=== PATIENT | female | born 1950 | race Caucasian/White ===

== ENCOUNTER → 2016-11-03 | Outpatient (CLI) | payer OTHER ==
[~2016-11-03] MED LIST: ASPI325T4 PO; DILT120T PO; LIDOCAINE 1%, 20ML ONE; PHEN100C PO; PHEN100T2 PO; SODIUM BICARBONATE 4.2%, 5ML ONE; SULF1TAB3 PO
== END | disposition home or self-care (01) ==
LOC: RAD 12:51
PROVIDERS: ATTEND Surgery
DX: Z01.818 Encounter for other preprocedural examination (principal); E04.1 Nontoxic single thyroid nodule
CPT/HCPCS: 76942; 88172; 88173; J3490

== ENCOUNTER 2016-12-13 22:22 | Inpatient (IN) | payer OTHER ==
[~2016-12-13] VITALS: Ht 160 cm; Wt 87.3 kg
[~2016-12-13 22:22] MED LIST changes: -LIDOCAINE 1%, 20ML ONE; -SODIUM BICARBONATE 4.2%, 5ML ONE
[2016-12-13] MEDS ORDERED: OMNIPAQUE 350 MG/ML, 100ML BOTTLE ONE (23:02)
[2016-12-14] MEDS ORDERED: ASPIRIN 81 MG TABLET CHEW PO ONE
[2016-12-14] MEDS ORDERED: ASPIRIN 81 MG TABLET CHEW ONE (00:09)
[2016-12-14] MEDS ORDERED: METO25TA35 PO (00:50)
[2016-12-14] MEDS ORDERED: ASPI81TA50 PO (00:50)
[2016-12-14] MEDS ORDERED: LABETALOL 5MG/ML, 20ML IV PRN (01:30)
[2016-12-14 01:48] VITALS: BP 136/89
[2016-12-14 02:29] VITALS: BP 136/89
[2016-12-14] MEDS: SODIUM CHLORIDE 0.9% 1,000 ML IV SCH ×3 (02:31→23:44)
[2016-12-14] MEDS: HEPARIN 5,000 UNITS/ML, 1ML SQ SCH ×3 (02:31→19:52)
[2016-12-14] MEDS: METOPROLOL SUCCINATE 25 MG TAB.ER.24H PO SCH (05:41)
[2016-12-14 06:47] LABS: C-REACTIVE PROTEIN, QUANT 0.54 mg/dL (0.02-0.49)
[2016-12-14 07:52] VITALS: BP 127/76
[2016-12-14] MEDS ORDERED: PHENYTOIN 100 MG CAPSULE PO SCH (09:00)
[2016-12-14] MEDS: ASPIRIN 325 MG TABLET PO SCH ×2 (09:00→16:15)
[2016-12-14] MEDS ORDERED: PHENOBARBITAL 100 MG TABLET PO SCH ×2 (09:00→12:30)
[2016-12-14] MEDS ORDERED: PHENYTOIN SODIUM 300 MG in SODIUM CHLORIDE 0.9% 100 ML IV SCH (12:00)
[2016-12-14] MEDS ORDERED: LORazepam 2 MG/ML, 1ML IVPush PRN (12:00)
[2016-12-14] MEDS ORDERED: FILTER 0.22 MICRON IV ONE (12:30)
[2016-12-14] MEDS ORDERED: FILTER 0.22 MICRON IV PRN (12:30)
[2016-12-14 14:13] VITALS: BP 124/81
[2016-12-14] MEDS: PHENYTOIN 100 MG CAPSULE PO SCH (19:53)
[2016-12-14] MEDS ORDERED: ATORVASTATIN 40 MG TABLET PO SCH (21:00)
[2016-12-14 21:01] VITALS: BP 134/87
[2016-12-15 02:28] VITALS: BP 130/88
[2016-12-15] MEDS ORDERED: METOPROLOL TARTRATE 25 MG TABLET PO ONE (04:30)
[2016-12-15] MEDS: HEPARIN 5,000 UNITS/ML, 1ML SQ SCH ×3 (04:50→22:01)
[2016-12-15] MEDS: METOPROLOL SUCCINATE 25 MG TAB.ER.24H PO SCH (05:27)
[2016-12-15 05:52] LABS: ASPARTATE AMINO TRANSFERASE 15 U/L (15-37); BLOOD UREA NITROGEN 10 mg/dL (7-18)
[2016-12-15] MEDS: SODIUM CHLORIDE 0.9% 1,000 ML IV SCH (07:00)
[2016-12-15 07:53] VITALS: BP 135/84
[2016-12-15] MEDS: PHENOBARBITAL 100 MG TABLET PO SCH (08:12)
[2016-12-15] MEDS: ASPIRIN 325 MG TABLET PO SCH (08:12)
[2016-12-15] MEDS ORDERED: PHENOBARBITAL 100 MG TABLET PO SCH (09:00)
[2016-12-15] MEDS ORDERED: DILTIAZEM 5 MG/ML, 5ML ONE (09:08)
[2016-12-15] MEDS ORDERED: DILTIAZEM 5 MG/ML, 5ML IVPush ONE (09:30)
[2016-12-15 10:06] VITALS: BP 120/89
[2016-12-15] MEDS ORDERED: METOPROLOL SUCCINATE 25 MG TAB.ER.24H PO ONE (10:30)
[2016-12-15] MEDS ORDERED: METOPROLOL SUCCINATE 25 MG TAB.ER.24H PO SCH (10:30)
[2016-12-15 13:01] VITALS: BP 113/72
[2016-12-15] MEDS: DIGOXIN 0.125 MG TABLET PO SCH (14:04)
[2016-12-15 19:42] VITALS: BP 114/74
[2016-12-15] MEDS ORDERED: METOPROLOL SUCCINATE 50 MG TAB.ER.24H PO SCH (21:00)
[2016-12-15] MEDS: PHENYTOIN 100 MG CAPSULE PO SCH (22:01)
[2016-12-15] MEDS: ATORVASTATIN 80 MG TABLET PO SCH (22:01)
[2016-12-16 00:09] VITALS: BP 113/70
[2016-12-16] MEDS: HEPARIN 5,000 UNITS/ML, 1ML SQ SCH ×3 (05:31→23:52)
[2016-12-16 08:11] VITALS: BP 148/85
[2016-12-16] MEDS ORDERED: METOPROLOL SUCCINATE 50 MG TAB.ER.24H PO SCH (09:00)
[2016-12-16] MEDS: DIGOXIN 0.125 MG TABLET PO SCH (09:34)
[2016-12-16] MEDS: PHENOBARBITAL 100 MG TABLET PO SCH (09:34)
[2016-12-16] MEDS: ASPIRIN 325 MG TABLET PO SCH (09:34)
[2016-12-16] MEDS ORDERED: SOTALOL 80MG TABLET PO SCH ×2 (11:00→18:00)
[2016-12-16] MEDS: SOTALOL 80MG TABLET PO SCH ×2 (11:45→18:36)
[2016-12-16] MEDS: ACETAMINOPHEN 325 MG TABLET PO PRN (14:57)
[2016-12-16 15:58] VITALS: BP 122/83
[2016-12-16 20:02] VITALS: BP 115/79
[2016-12-16] MEDS: ATORVASTATIN 80 MG TABLET PO SCH (20:19)
[2016-12-16] MEDS: PHENYTOIN 100 MG CAPSULE PO SCH (20:19)
[2016-12-16] MEDS: DABIGATRAN 150 MG CAPSULE PO SCH (20:20)
[2016-12-17 03:20] VITALS: BP 149/83
[2016-12-17] MEDS: SOTALOL 80MG TABLET PO SCH ×2 (05:59→18:02)
[2016-12-17 08:38] VITALS: BP 121/79
[2016-12-17] MEDS: HEPARIN 5,000 UNITS/ML, 1ML SQ SCH ×2 (09:00→16:53)
[2016-12-17] MEDS: DABIGATRAN 150 MG CAPSULE PO SCH ×2 (09:01→21:19)
[2016-12-17] MEDS: PHENOBARBITAL 100 MG TABLET PO SCH (09:02)
[2016-12-17] MEDS: ACETAMINOPHEN 325 MG TABLET PO PRN ×2 (10:36→22:09)
[2016-12-17 15:15] VITALS: BP 105/63
[2016-12-17] MEDS: ATORVASTATIN 80 MG TABLET PO SCH (21:19)
[2016-12-17] MEDS: PHENYTOIN 100 MG CAPSULE PO SCH (21:19)
[2016-12-17 21:36] VITALS: BP 122/83
[2016-12-18 01:13] VITALS: BP 116/75
[2016-12-18 05:22] LABS: BLOOD UREA NITROGEN 13 mg/dL (7-18)
[2016-12-18] MEDS: SOTALOL 80MG TABLET PO SCH ×2 (06:20→18:06)
[2016-12-18 07:37] VITALS: BP 120/73
[2016-12-18] MEDS: DABIGATRAN 150 MG CAPSULE PO SCH ×2 (09:25→22:19)
[2016-12-18] MEDS: PHENOBARBITAL 100 MG TABLET PO SCH (09:27)
[2016-12-18] MEDS: ACETAMINOPHEN 325 MG TABLET PO PRN (09:38)
[2016-12-18 14:18] VITALS: BP 122/76
[2016-12-18 21:21] VITALS: BP 131/88
[2016-12-18] MEDS: ATORVASTATIN 80 MG TABLET PO SCH (22:18)
[2016-12-18] MEDS: PHENYTOIN 100 MG CAPSULE PO SCH (22:19)
[2016-12-19 01:47] VITALS: BP 108/69
[2016-12-19 06:16] VITALS: BP 104/57
[2016-12-19] MEDS: SOTALOL 80MG TABLET PO SCH ×2 (06:24→18:18)
[2016-12-19 07:50] VITALS: BP 100/63
[2016-12-19] MEDS ORDERED: ATOR80TA75 PO (09:44)
[2016-12-19] MEDS ORDERED: POLY17PO5 PO (09:44)
[2016-12-19] MEDS ORDERED: SOTA80TA18 PO (09:44)
[2016-12-19] MEDS ORDERED: OXYC-302 PO (09:44)
[2016-12-19] MEDS ORDERED: DABI150C PO (09:44)
[2016-12-19] MEDS: DABIGATRAN 150 MG CAPSULE PO SCH ×2 (10:28→21:19)
[2016-12-19] MEDS: PHENOBARBITAL 100 MG TABLET PO SCH (10:28)
[2016-12-19] MEDS ORDERED: PNEUMOCOCCAL 23 VACCINE IM-VACC ONE (11:30)
[2016-12-19 13:53] VITALS: BP 112/70
[2016-12-19 18:34] VITALS: BP 123/68
[2016-12-19] MEDS: ATORVASTATIN 80 MG TABLET PO SCH (21:19)
[2016-12-19] MEDS: PHENYTOIN 100 MG CAPSULE PO SCH (21:20)
[2016-12-20 02:06] VITALS: BP 164/62
[2016-12-20] MEDS: SOTALOL 80MG TABLET PO SCH ×2 (05:35→18:05)
[2016-12-20 07:18] VITALS: BP 119/77
[2016-12-20] MEDS: PHENOBARBITAL 100 MG TABLET PO SCH (11:10)
[2016-12-20] MEDS: DABIGATRAN 150 MG CAPSULE PO SCH ×2 (11:10→20:47)
[2016-12-20 13:13] VITALS: BP 142/82
[2016-12-20 19:18] VITALS: BP 129/81
[2016-12-20] MEDS: ATORVASTATIN 80 MG TABLET PO SCH (20:47)
[2016-12-20] MEDS: PHENYTOIN 100 MG CAPSULE PO SCH (20:47)
[2016-12-21] VITALS (7 sets, daily range): BP systolic 113–147; BP diastolic 70–105
[2016-12-21] MEDS: SOTALOL 80MG TABLET PO SCH ×2 (06:21→17:55)
[2016-12-21] MEDS: DABIGATRAN 150 MG CAPSULE PO SCH ×2 (10:01→22:05)
[2016-12-21] MEDS: PHENOBARBITAL 100 MG TABLET PO SCH (10:01)
[2016-12-21] MEDS ORDERED: DILTIAZEM 5 MG/ML, 5ML IVPush ONE (21:30)
[2016-12-21] MEDS: PHENYTOIN 100 MG CAPSULE PO SCH (22:04)
[2016-12-21] MEDS: ATORVASTATIN 80 MG TABLET PO SCH (22:04)
[2016-12-22 01:17] VITALS: BP 113/80
[2016-12-22] MEDS: SOTALOL 80MG TABLET PO SCH (06:20)
[2016-12-22 06:40] VITALS: BP 123/87
[2016-12-22] MEDS: DABIGATRAN 150 MG CAPSULE PO SCH (09:43)
[2016-12-22] MEDS: PHENOBARBITAL 100 MG TABLET PO SCH (09:44)
[2016-12-22 12:30] VITALS: BP 104/71
== END 2016-12-22 16:25 | DRG 308 ==
LOC: ED 23:40 → EDIP 12-14 00:44 → 4WST 12-14 01:39
PROVIDERS: ADMIT Internal Medicine; ATTEND Internal Medicine
DX: I48.0 Paroxysmal atrial fibrillation (principal); I63.411 Cerebral infarction due to embolism of right middle cerebral artery; D68.69 Other thrombophilia; G47.33 Obstructive sleep apnea (adult) (pediatric); E66.9 Obesity, unspecified; E78.5 Hyperlipidemia, unspecified; G40.909 Epilepsy, unspecified, not intractable, without status epilepticus; I10 Essential (primary) hypertension; I49.5 Sick sinus syndrome; I65.22 Occlusion and stenosis of left carotid artery; I65.01 Occlusion and stenosis of right vertebral artery; Z66 Do not resuscitate; Z79.899 Other long term (current) drug therapy; Z87.891 Personal history of nicotine dependence; Z53.29 Procedure and treatment not carried out because of patient's decision for other reasons; Z88.8 Allergy status to other drugs, medicaments and biological substances; Z91.040 Latex allergy status; Z68.34 Body mass index [BMI] 34.0-34.9, adult
CPT/HCPCS: 36415; 70450; 70496; 70498; 70551; 71010; 80047; 80048; 80053; 80061; 80162; 81003; 82607; 82746; 82962; 83036; 83735; 84443; 85014; 85018; 85025; 85610; 85651; 85730; 86140; 90732; 93005; 93306; J1644; Q9967; 92523-GN; J7030

== ENCOUNTER 2017-01-22 11:11 | Inpatient (IN) | payer OTHER ==
[~2017-01-22] VITALS: Ht 160 cm; Wt 83.7 kg
[~2017-01-22 11:11] MED LIST changes: +ASPI81TA50 PO; +ATOR80TA75 PO; +DABI150C PO; +METO25TA35 PO; +OXYC-302 PO; +POLY17PO5 PO; +SOTA80TA18 PO
[2017-01-22] MEDS ORDERED: ASPIRIN 81 MG TABLET CHEW PO ONE (12:30)
[2017-01-22 12:36] LABS: HEMATOCRIT 40.1 % (34.6-47.8); HEMOGLOBIN 13.7 g/dL (11.7-16.4); WHITE BLOOD COUNT 6.1 x10^3/uL (3.4-10)
[2017-01-22 13:00] LABS: BLOOD UREA NITROGEN 13 mg/dL (7-18)
[2017-01-22 13:03] LABS: IS PT STATUS REG ER OR PRE ER? YES
[2017-01-22 14:35] VITALS: BP 146/81
[2017-01-22] MEDS ORDERED: POLYETHYLENE GLYCOL 17 GM PACKET PO PRN ×2 (17:00)
[2017-01-22] MEDS ORDERED: DOCUSATE 100 MG CAPSULE PO PRN (17:00)
[2017-01-22] MEDS ORDERED: OXYcodone/APAP 5/325MG TABLET PO SCH (17:00)
[2017-01-22] MEDS ORDERED: hydrALAzine 20 MG/ML, 1ML IVPush PRN (17:00)
[2017-01-22] MEDS ORDERED: BISACODYL 10 MG SUPP PR PRN (17:00)
[2017-01-22] MEDS ORDERED: morphine SULFATE 10 MG/ML, 1ML IVPush PRN (17:00)
[2017-01-22] MEDS ORDERED: OXYcodone IR 5MG TABLET PO PRN (17:00)
[2017-01-22] MEDS ORDERED: ENALAPRILAT 1.25 MG/ML, 2ML IVPush PRN (17:00)
[2017-01-22] MEDS ORDERED: CYANOCOBALAMIN 1,000 MCG/ML, 1ML IM ONE (17:00)
[2017-01-22] MEDS ORDERED: ONDANSETRON 2MG/ML, 2ML IVPush PRN (17:00)
[2017-01-22] MEDS: PANTOPRAZOLE 40 MG IV IVPush SCH (17:37)
[2017-01-22] MEDS ORDERED: SOTALOL 80MG TABLET PO SCH ×2 (18:00)
[2017-01-22] MEDS: SOTALOL 80MG TABLET PO SCH (18:11)
[2017-01-22 19:45] VITALS: BP 163/75
[2017-01-22] MEDS: DABIGATRAN 150 MG CAPSULE PO SCH (20:59)
[2017-01-22] MEDS: ATORVASTATIN 80 MG TABLET PO SCH (20:59)
[2017-01-22 21:12] LABS: IS PT STATUS REG ER OR PRE ER? NO
[2017-01-22] MEDS: SODIUM CHLORIDE 0.9% 1,000 ML IV SCH (23:29)
[2017-01-23 01:53] VITALS: BP 138/82
[2017-01-23 03:17] LABS: ASPARTATE AMINO TRANSFERASE 30 U/L (15-37); BLOOD UREA NITROGEN 14 mg/dL (7-18)
[2017-01-23 03:20] LABS: HEMOGLOBIN 12.6 g/dL (11.7-16.4); WHITE BLOOD COUNT 6.1 x10^3/uL (3.4-10)
[2017-01-23 03:22] LABS: IS PT STATUS REG ER OR PRE ER? NO
[2017-01-23 07:32] VITALS: BP 130/78
[2017-01-23 07:55] VITALS: BP 166/81
[2017-01-23] MEDS: CYANOCOBALAMIN 1,000 MCG TABLET PO SCH (07:57)
[2017-01-23] MEDS: DABIGATRAN 150 MG CAPSULE PO SCH ×2 (07:58→21:06)
[2017-01-23] MEDS: PHENOBARBITAL 100 MG TABLET PO SCH (07:58)
[2017-01-23] MEDS: SOTALOL 80MG TABLET PO SCH (07:59)
[2017-01-23] MEDS: PHENYTOIN 100 MG CAPSULE PO SCH (07:59)
[2017-01-23] MEDS: PANTOPRAZOLE 40 MG IV IVPush SCH (08:00)
[2017-01-23] MEDS: SODIUM CHLORIDE 0.9% 1,000 ML IV SCH (08:00)
[2017-01-23] MEDS ORDERED: REGADENOSON 0.4 MG/5 ML SYRINGE ONE (10:27)
[2017-01-23] MEDS: ACETAMINOPHEN 325 MG TABLET PO PRN (12:20)
[2017-01-23 12:24] VITALS: BP 153/93
[2017-01-23 14:38] VITALS: BP 146/88
[2017-01-23] MEDS ORDERED: SOTA120T26 PO (15:55)
[2017-01-23] MEDS ORDERED: morphine SULFATE 10 MG/ML, 1ML IVPush PRN (17:00)
[2017-01-23] MEDS: SOTALOL 120MG TABLET PO SCH (17:11)
[2017-01-23 20:00] VITALS: BP 162/83
[2017-01-23] MEDS: ATORVASTATIN 80 MG TABLET PO SCH (21:06)
[2017-01-24 01:45] VITALS: BP 126/73
[2017-01-24 04:54] LABS: HEMATOCRIT 38.3 % (34.6-47.8)
[2017-01-24 05:07] LABS: BLOOD UREA NITROGEN 14 mg/dL (7-18)
[2017-01-24] MEDS: SOTALOL 120MG TABLET PO SCH ×3 (05:13→21:12)
[2017-01-24 07:20] VITALS: BP 128/78
[2017-01-24] MEDS: DABIGATRAN 150 MG CAPSULE PO SCH ×2 (08:22→21:13)
[2017-01-24] MEDS: CYANOCOBALAMIN 1,000 MCG TABLET PO SCH (08:22)
[2017-01-24] MEDS ORDERED: CEFAZOLIN PMX 1GM/50ML 50 ML IVPB ONE (12:00)
[2017-01-24] MEDS ORDERED: MIDAZOLAM 1 MG/ML, 5ML ONE (12:20)
[2017-01-24] MEDS ORDERED: FENTANYL PF 100 MCG/2ML ONE (12:20)
[2017-01-24] MEDS ORDERED: LIDOCAINE 2%, 20ML ONE (12:20)
[2017-01-24] MEDS ORDERED: VANCOMYCIN 500 MG ONE (12:26)
[2017-01-24] MEDS ORDERED: VANCOMYCIN PMX 1GM/200ML 200 ML ONE (12:26)
[2017-01-24] MEDS ORDERED: DIPHENHYDRAMINE 50 MG/ML, 1ML ONE (13:16)
[2017-01-24] MEDS ORDERED: LABETALOL 5MG/ML, 20ML ONE (13:48)
[2017-01-24] MEDS ORDERED: LABETALOL 5MG/ML, 20ML IVPush PRN (14:30)
[2017-01-24] MEDS ORDERED: VANCOMYCIN PMX 1GM/200ML 200 ML IVPB SCH (15:00)
[2017-01-24 15:24] VITALS: BP 113/105
[2017-01-24 19:39] VITALS: BP 128/87
[2017-01-24 21:02] VITALS: BP 115/72
[2017-01-24] MEDS: SODIUM CHLORIDE FLUSH 10ML SYR IVF SCH (21:11)
[2017-01-24] MEDS: PHENYTOIN 100 MG CAPSULE PO SCH (21:12)
[2017-01-24] MEDS: ATORVASTATIN 80 MG TABLET PO SCH (21:12)
[2017-01-24] MEDS: OXYcodone/APAP 5/325MG TABLET PO PRN (21:13)
[2017-01-24] MEDS: PHENOBARBITAL 100 MG TABLET PO SCH (21:13)
[2017-01-25] MEDS: SODIUM CHLORIDE 0.9% 1,000 ML IV SCH ×3 (01:28→17:00)
[2017-01-25 01:29] VITALS: BP 111/81
[2017-01-25] MEDS: ACETAMINOPHEN 325 MG TABLET PO PRN (01:29)
[2017-01-25 06:06] LABS: HEMATOCRIT 42.2 % (34.6-47.8); WHITE BLOOD COUNT 7.1 x10^3/uL (3.4-10)
[2017-01-25 06:16] LABS: BLOOD UREA NITROGEN 12 mg/dL (7-18)
[2017-01-25 08:15] VITALS: BP 135/97
[2017-01-25] MEDS: OXYcodone/APAP 5/325MG TABLET PO PRN (09:06)
[2017-01-25] MEDS: CYANOCOBALAMIN 1,000 MCG TABLET PO SCH (09:07)
[2017-01-25] MEDS: SOTALOL 120MG TABLET PO SCH (09:07)
[2017-01-25] MEDS: SODIUM CHLORIDE FLUSH 10ML SYR IVF SCH (09:08)
[2017-01-25] MEDS: DABIGATRAN 150 MG CAPSULE PO SCH (09:08)
[2017-01-25 13:24] VITALS: BP 131/86
[2017-01-25] MEDS ORDERED: SOTA120T26 PO (17:09)
== END 2017-01-25 19:08 | disposition home or self-care (01) | DRG 243 ==
LOC: ED 13:20 → EDIP 13:21 → ED 13:28 → 5SO 14:29
PROVIDERS: ADMIT Internal Medicine; ATTEND Internal Medicine
PROC: 0JH606Z Insertion of Pacemaker, Dual Chamber into Chest Subcutaneous Tissue and Fascia, Open Approach (ICD-10-PCS; principal; 2017-01-24)
PROC: 02H63JZ Insertion of Pacemaker Lead into Right Atrium, Percutaneous Approach (ICD-10-PCS; 2017-01-24)
PROC: 02HK3JZ Insertion of Pacemaker Lead into Right Ventricle, Percutaneous Approach (ICD-10-PCS; 2017-01-24)
DX: I49.5 Sick sinus syndrome (principal); D68.69 Other thrombophilia; I48.0 Paroxysmal atrial fibrillation; I10 Essential (primary) hypertension; I65.22 Occlusion and stenosis of left carotid artery; E53.8 Deficiency of other specified B group vitamins; G40.909 Epilepsy, unspecified, not intractable, without status epilepticus; E78.5 Hyperlipidemia, unspecified; M72.0 Palmar fascial fibromatosis [Dupuytren]; G47.33 Obstructive sleep apnea (adult) (pediatric); K21.9 Gastro-esophageal reflux disease without esophagitis; K44.9 Diaphragmatic hernia without obstruction or gangrene; Z79.01 Long term (current) use of anticoagulants; Z79.82 Long term (current) use of aspirin; Z86.73 Personal history of transient ischemic attack (TIA), and cerebral infarction without residual deficits; Z88.8 Allergy status to other drugs, medicaments and biological substances; Z91.040 Latex allergy status
CPT/HCPCS: 33208; 36415; 71010; 78452; 80048; 80053; 80061; 81001; 82040; 83036; 83605; 83735; 84439; 84443; 84484; 85025; 87086; 93005; 93017; 99156; 99157; 99285; C1779; C1785; C1892; J2250; J2785; J3010; J3370; J3490; A9502; C9113; C9898; J1200; J3420; J7030

== ENCOUNTER → 2017-01-31 | Outpatient (CLI) | payer OTHER ==
[~2017-01-31] MED LIST changes: +PANT40TA5 PO; +SOTA120T26 PO
== END | disposition home or self-care (01) ==
LOC: CFH 08:44
PROVIDERS: ATTEND Nurse Practitioner Family
DX: Z95.0 Presence of cardiac pacemaker (principal)
CPT/HCPCS: 71020

== ENCOUNTER 2017-02-02 11:02 | Day surgery (SDC) | payer OTHER ==
[~2017-02-02] VITALS: Ht 160 cm; Wt 85.5 kg
[~2017-02-02 11:02] MED LIST changes: -PANT40TA5 PO
[2017-02-02] MEDS ORDERED: SODIUM CHLORIDE 0.9% 1,000 ML IV SCH (13:06)
[2017-02-02 13:27] VITALS: BP 140/106
[2017-02-02] MEDS ORDERED: PLEASE ENTER HEIGHT AND WEIGHT MC SCH (13:30)
[2017-02-02 13:47] LABS: HEMATOCRIT 43.7 % (34.6-47.8); HEMOGLOBIN 14.7 g/dL (11.7-16.4); WHITE BLOOD COUNT 6.1 x10^3/uL (3.4-10)
[2017-02-02] MEDS ORDERED: PANT40TA5 PO (13:50)
[2017-02-02 13:58] LABS: BLOOD UREA NITROGEN 10 mg/dL (7-18)
[2017-02-02] MEDS ORDERED: SOTA120T26 PO (14:00)
[2017-02-02] MEDS ORDERED: MIDAZOLAM 1 MG/ML, 5ML ONE (14:00)
[2017-02-02] MEDS ORDERED: LIDOCAINE 2%, 20ML ONE ×2 (14:00→14:17)
[2017-02-02] MEDS ORDERED: ATOR80TA75 PO (14:00)
[2017-02-02] MEDS ORDERED: VANCOMYCIN PMX 1GM/200ML 200 ML ONE (14:00)
[2017-02-02] MEDS ORDERED: FENTANYL PF 100 MCG/2ML ONE (14:00)
[2017-02-02] MEDS ORDERED: VANCOMYCIN 500 MG ONE (14:00)
[2017-02-02] MEDS ORDERED: DABI150C PO (14:00)
[2017-02-02] MEDS ORDERED: DIPHENHYDRAMINE 50 MG/ML, 1ML ONE (14:21)
[2017-02-02] MEDS ORDERED: HYDROcodone/APAP 5/325 TABLET PO PRN (15:30)
[2017-02-02] MEDS ORDERED: SODIUM CHLORIDE FLUSH 10ML SYR IVF SCH (21:00)
== END 2017-02-02 16:31 ==
LOC: CACL 11:02
PROVIDERS: ATTEND Internal Medicine Cardiovascular Disease
DX: T82.120A Displacement of cardiac electrode, initial encounter (principal); Y83.8 Other surgical procedures as the cause of abnormal reaction of the patient, or of later complication, without mention of misadventure at the time of the procedure; Y92.89 Other specified places as the place of occurrence of the external cause; I48.0 Paroxysmal atrial fibrillation; I62.00 Nontraumatic subdural hemorrhage, unspecified; G47.30 Sleep apnea, unspecified; I10 Essential (primary) hypertension; Z86.73 Personal history of transient ischemic attack (TIA), and cerebral infarction without residual deficits; Z88.8 Allergy status to other drugs, medicaments and biological substances; Z91.040 Latex allergy status; Z95.0 Presence of cardiac pacemaker
CPT/HCPCS: 33215; 36415; 80048; 85025; 85610; 99156; 99157; J2250; J3010; J3370; J3490; J1200

== ENCOUNTER 2017-10-25 13:30 | Emergency (ER) | payer OTHER ==
[~2017-10-25] VITALS: Ht 162.6 cm; Wt 98.5 kg
[~2017-10-25 13:30] MED LIST changes: +ASPI-621 PO; +ASPI325T17 PO; -ASPI325T4 PO; +ATOR-2 PO; -ATOR80TA75 PO; +LEVO75TA5 PO; +PANT40TA5 PO; +SOTA80TA PO; +SULF-169 PO; -SULF1TAB3 PO
[2017-10-25 14:46] LABS: BASOPHILS # (AUTO) 0.02 x10^3/uL (0-0.1); BASOPHILS % (AUTO) 0 % (0-1); EOSINOPHILS % (AUTO) 2 % (1-7); LYMPHOCYTES # (AUTO) 1.75 x10^3/uL (1-3.4); LYMPHOCYTES % (AUTO) 29 % (22-44); MD NO; MEAN CORPUSCULAR HEMOGLOBIN 32.9 pg (27.0-34.8); MEAN CORPUSCULAR HGB CONC 33.4 g/dL (32.4-35.8); MEAN CORPUSCULAR VOLUME 98.5 fL (80-100); MEAN PLATELET VOLUME 7.1 fL (7.4-10.4); MONOCYTES # (AUTO) 0.71 x10^3/uL (0.2-0.8); MONOCYTES % (AUTO) 12 % (2-9); NEUTROPHILS # (AUTO) 3.55 x10^3/uL (1.8-6.8); NEUTROPHILS % (AUTO) 58 % (42-75); PLATELET COUNT 280 x10^3/uL (130-400); RED BLOOD COUNT 4.04 x10^6/uL (3.82-5.3); RED CELL DISTRIBUTION WIDTH 13.4 % (9.6-15.2)
[2017-10-25 14:55] LABS: ALBUMIN 3.5 g/dL (3.4-5.0); ANION GAP 6 mmol/L (5-15); CALCIUM 8.1 mg/dL (8.5-10.1); CHLORIDE 111 mmol/L (98-107)
[2017-10-25 15:00] LABS: ALANINE AMINOTRANSFERASE 12 U/L (12-78); ALKALINE PHOSPHATASE 106 U/L (45-117); BILIRUBIN,TOTAL 0.2 mg/dL (0.2-1.0); CREATININE 0.86 mg/dL (0.55-1.02); TOTAL PROTEIN 7.6 g/dL (6.4-8.2); TROPONIN I < 0.015 ng/mL (0.000-0.045)
[2017-10-25 15:21] VITALS: BP 134/66
== END 2017-10-25 16:22 | disposition home or self-care (01) ==
LOC: ED 16:10
DX: R60.0 Localized edema (principal); I48.91 Unspecified atrial fibrillation; I10 Essential (primary) hypertension; Z86.73 Personal history of transient ischemic attack (TIA), and cerebral infarction without residual deficits
CPT/HCPCS: 36415; 71045; 80053; 83880; 84484; 85025; 99285

== ENCOUNTER 2018-09-23 10:19 | Inpatient (IN) | payer OTHER ==
[~2018-09-23] VITALS: Ht 162.6 cm; Wt 103.4 kg
[~2018-09-23 10:19] MED LIST changes: -ASPI-621 PO; +ASPI81TA45 PO
[2018-09-23 11:06] LABS: BASOPHILS # (AUTO) 0.02 x10^3/uL (0-0.1); BASOPHILS % (AUTO) 0 % (0-1); EOSINOPHILS # (AUTO) 0.07 x10^3/uL (0-0.4); EOSINOPHILS % (AUTO) 1 % (1-7); LYMPHOCYTES % (AUTO) 25 % (22-44); MD NO; MEAN CORPUSCULAR HEMOGLOBIN 34.6 pg (27.0-34.8); MEAN CORPUSCULAR HGB CONC 34.5 g/dL (32.4-35.8); MEAN CORPUSCULAR VOLUME 100.3 fL (80-100); MONOCYTES % (AUTO) 9 % (2-9); NEUTROPHILS # (AUTO) 3.86 x10^3/uL (1.8-6.8); NEUTROPHILS % (AUTO) 65 % (42-75); PLATELET COUNT 311 x10^3/uL (130-400); RED CELL DISTRIBUTION WIDTH 13.7 % (9.6-15.2)
--- NOTE | 2018-09-23 11:21 | NUR ---
Pt to 15 from lobby
[2018-09-23 11:24] LABS: ALBUMIN 3.8 g/dL (3.4-5.0); ANION GAP 7 mmol/L (5-15); CALCIUM 8.4 mg/dL (8.5-10.1); CHLORIDE 110 mmol/L (98-107)
[2018-09-23 11:31] LABS: ALANINE AMINOTRANSFERASE 12 U/L (12-78); ALKALINE PHOSPHATASE 105 U/L (45-117); BILIRUBIN,TOTAL 0.2 mg/dL (0.2-1.0); TOTAL PROTEIN 7.6 g/dL (6.4-8.2)
[2018-09-23] MEDS ORDERED: CEFTRIAXONE PMX 1GM/50ML 50 ML IV ONE (12:00)
[2018-09-23] MEDS ORDERED: AZITHROMYCIN 500 MG in SODIUM CHLORIDE 0.9% 250 ML IVPB ONE (12:00)
[2018-09-23] MEDS ORDERED: CEFTRIAXONE PMX 1GM/50ML 50 ML ONE (12:01)
[2018-09-23 12:28] LABS: TROPONIN I < 0.015 ng/mL (0.000-0.045)
--- NOTE | 2018-09-23 12:51 | NUR ---
REQUIRE ASSISTANCE TO RESTROOM. BACK ON MONITOR AND SECOND ANTIBIOTIC STARTED.
--- NOTE | 2018-09-23 13:22 | NUR ---
REPORT TO JUSTINO ALCANTARA. PT TO BE TRANSPORTED TO FLOOR VIA [facility] WITH STAFF
[2018-09-23] MEDS ORDERED: SODIUM CHLORIDE 0.9% 1,000 ML IV SCH (16:02)
[2018-09-23] MEDS ORDERED: ACETAMINOPHEN 325 MG TABLET PO PRN (16:30)
[2018-09-23] MEDS ORDERED: ONDANSETRON 2MG/ML, 2ML IVPush PRN (16:30)
[2018-09-23] MEDS ORDERED: ONDANSETRON ODT 4 MG PO PRN (16:30)
[2018-09-23 17:13] LABS: TROPONIN I < 0.015 ng/mL (0.000-0.045)
[2018-09-23 18:00] VITALS: BP 162/88
[2018-09-23 18:06] LABS: FOLATE LEVEL 6.8 ng/mL (3.1-17.5)
[2018-09-23 19:36] VITALS: BP 134/82
[2018-09-23] MEDS: METOPROLOL TARTRATE 25 MG TABLET PO SCH (19:57)
[2018-09-23] MEDS: ATORVASTATIN 80 MG TABLET PO SCH (19:57)
[2018-09-23] MEDS: DOXYCYCLINE 100 MG in DEXTROSE 5% 250 ML IV SCH (19:57)
[2018-09-23] MEDS: DABIGATRAN 150 MG CAPSULE PO SCH (19:57)
[2018-09-23] MEDS: SOTALOL 80MG TABLET PO SCH (19:58)
[2018-09-23] MEDS ORDERED: PHENYTOIN 100 MG CAPSULE PO SCH (21:00)
[2018-09-23] MEDS: PHENOBARBITAL 100 MG TABLET PO SCH (22:26)
[2018-09-23 23:07] LABS: TROPONIN I < 0.015 ng/mL (0.000-0.045)
[2018-09-24 02:20] VITALS: BP 124/79
[2018-09-24 04:33] LABS: MICROSCOPIC NOT IND
[2018-09-24 04:35] LABS: CULTURE INDICATED? NO
[2018-09-24 05:03] LABS: BASOPHILS # (AUTO) 0.02 x10^3/uL (0-0.1); BASOPHILS % (AUTO) 0 % (0-1); EOSINOPHILS % (AUTO) 2 % (1-7); LYMPHOCYTES # (AUTO) 2.37 x10^3/uL (1-3.4); LYMPHOCYTES % (AUTO) 42 % (22-44); MD NO; MEAN CORPUSCULAR HEMOGLOBIN 34.4 pg (27.0-34.8); MEAN CORPUSCULAR VOLUME 101.1 fL (80-100); MEAN PLATELET VOLUME 6.8 fL (7.4-10.4); MONOCYTES # (AUTO) 0.61 x10^3/uL (0.2-0.8); MONOCYTES % (AUTO) 11 % (2-9); NEUTROPHILS # (AUTO) 2.58 x10^3/uL (1.8-6.8); NEUTROPHILS % (AUTO) 45 % (42-75); PLATELET COUNT 278 x10^3/uL (130-400); RED BLOOD COUNT 3.97 x10^6/uL (3.82-5.3); RED CELL DISTRIBUTION WIDTH 13.4 % (9.6-15.2)
[2018-09-24] MEDS: LEVOTHYROXINE 75 MCG TABLET PO SCH (05:26)
[2018-09-24 06:00] LABS: ANION GAP 7 mmol/L (5-15); CALCIUM 8.5 mg/dL (8.5-10.1); CHLORIDE 114 mmol/L (98-107); CREATININE 0.75 mg/dL (0.55-1.02)
[2018-09-24 07:37] VITALS: BP 140/90
[2018-09-24] MEDS: DABIGATRAN 150 MG CAPSULE PO SCH ×2 (09:19→21:22)
[2018-09-24] MEDS: DOXYCYCLINE 100 MG in DEXTROSE 5% 250 ML IV SCH ×2 (09:20→20:00)
[2018-09-24] MEDS: METOPROLOL TARTRATE 25 MG TABLET PO SCH ×2 (09:20→17:28)
[2018-09-24] MEDS: SOTALOL 80MG TABLET PO SCH ×2 (09:20→17:27)
[2018-09-24 13:08] VITALS: BP 133/94
[2018-09-24] MEDS: CEFTRIAXONE PMX 1GM/50ML 50 ML IV SCH (13:22)
[2018-09-24 19:15] VITALS: BP 120/79
[2018-09-24] MEDS: PHENOBARBITAL 100 MG TABLET PO SCH (21:22)
[2018-09-24] MEDS: ATORVASTATIN 80 MG TABLET PO SCH (21:22)
[2018-09-25 01:50] VITALS: BP 132/80
[2018-09-25 06:25] LABS: BASOPHILS # (AUTO) 0.02 x10^3/uL (0-0.1); BASOPHILS % (AUTO) 0 % (0-1); EOSINOPHILS # (AUTO) 0.16 x10^3/uL (0-0.4); EOSINOPHILS % (AUTO) 2 % (1-7); LYMPHOCYTES # (AUTO) 1.93 x10^3/uL (1-3.4); LYMPHOCYTES % (AUTO) 27 % (22-44); MD NO; MEAN CORPUSCULAR HEMOGLOBIN 34.7 pg (27.0-34.8); MEAN CORPUSCULAR HGB CONC 34.4 g/dL (32.4-35.8); MEAN PLATELET VOLUME 7.3 fL (7.4-10.4); MONOCYTES # (AUTO) 0.75 x10^3/uL (0.2-0.8); MONOCYTES % (AUTO) 11 % (2-9); NEUTROPHILS # (AUTO) 4.29 x10^3/uL (1.8-6.8); NEUTROPHILS % (AUTO) 60 % (42-75); PLATELET COUNT 272 x10^3/uL (130-400); RED BLOOD COUNT 4.17 x10^6/uL (3.82-5.3); RED CELL DISTRIBUTION WIDTH 13.4 % (9.6-15.2)
[2018-09-25 06:26] LABS: ANION GAP 6 mmol/L (5-15); CALCIUM 8.3 mg/dL (8.5-10.1); CHLORIDE 109 mmol/L (98-107)
[2018-09-25 06:29] LABS: CREATININE 0.84 mg/dL (0.55-1.02)
[2018-09-25] MEDS: LEVOTHYROXINE 75 MCG TABLET PO SCH (06:42)
[2018-09-25] MEDS: METOPROLOL TARTRATE 25 MG TABLET PO SCH ×2 (06:43→18:32)
[2018-09-25] MEDS: SOTALOL 80MG TABLET PO SCH ×2 (06:43→18:32)
[2018-09-25 07:35] VITALS: BP 141/82
[2018-09-25] MEDS: DOXYCYCLINE 100 MG in DEXTROSE 5% 250 ML IV SCH ×2 (08:30→19:52)
[2018-09-25] MEDS: DABIGATRAN 150 MG CAPSULE PO SCH ×2 (08:30→19:51)
[2018-09-25] MEDS ORDERED: CYANOCOBALAMIN 1,000 MCG/ML, 1ML IM SCH ×2 (10:00→14:30)
[2018-09-25] MEDS: CEFTRIAXONE PMX 1GM/50ML 50 ML IV SCH (12:10)
[2018-09-25 12:43] VITALS: BP 138/84
[2018-09-25 18:31] VITALS: BP 144/88
[2018-09-25 19:42] VITALS: BP 99/54
[2018-09-25] MEDS: ATORVASTATIN 80 MG TABLET PO SCH (19:51)
[2018-09-25 20:15] VITALS: BP 153/75
[2018-09-25] MEDS ORDERED: PHENOBARBITAL 100 MG TABLET PO SCH (21:00)
[2018-09-26 01:45] VITALS: BP 163/83
[2018-09-26 05:12] VITALS: BP 165/94
[2018-09-26] MEDS: LEVOTHYROXINE 75 MCG TABLET PO SCH (05:14)
[2018-09-26] MEDS: METOPROLOL TARTRATE 25 MG TABLET PO SCH (05:15)
[2018-09-26] MEDS: SOTALOL 80MG TABLET PO SCH (05:15)
[2018-09-26 07:27] VITALS: BP 159/86
[2018-09-26 08:16] LABS: ALBUMIN 3.7 g/dL (3.4-5.0)
[2018-09-26] MEDS ORDERED: CYANOCOBALAMIN 1,000 MCG/ML, 1ML IM SCH (09:00)
[2018-09-26] MEDS: DABIGATRAN 150 MG CAPSULE PO SCH (09:12)
[2018-09-26] MEDS: DOXYCYCLINE 100 MG in DEXTROSE 5% 250 ML IV SCH (09:13)
[2018-09-26] MEDS ORDERED: DOXY100T PO (11:27)
[2018-09-26] MEDS ORDERED: CYAN10002 IM ×3 (11:27→13:03)
[2018-09-26] MEDS ORDERED: PHEN30TA PO (11:27)
[2018-09-26] MEDS ORDERED: CEFD300C37 PO (11:27)
[2018-09-26] MEDS ORDERED: PHEN97.2 PO (14:10)
[2018-09-26] MEDS ORDERED: PHENYTOIN 100 MG CAPSULE PO SCH (21:00)
[2018-09-26] MEDS ORDERED: PHENOBARBITAL 100 MG TABLET PO SCH (21:00)
[2018-09-26] MEDS ORDERED: PHENOBARBITAL 30 MG TABLET PO SCH (21:00)
== END 2018-09-26 12:50 | disposition home health service (06) | DRG 177 ==
LOC: ED 12:50 → 3NW 12:51 → ED 13:23 → 5SO 09-24 05:32 → DCLOUNGE 09-26 12:12
PROVIDERS: ADMIT Hospitalist; ATTEND Hospitalist
DX: J69.0 Pneumonitis due to inhalation of food and vomit (principal); J96.00 Acute respiratory failure, unspecified whether with hypoxia or hypercapnia; D68.69 Other thrombophilia; E53.8 Deficiency of other specified B group vitamins; I10 Essential (primary) hypertension; I48.91 Unspecified atrial fibrillation; R53.81 Other malaise; E03.9 Hypothyroidism, unspecified; D75.89 Other specified diseases of blood and blood-forming organs; I45.81 Long QT syndrome; E78.5 Hyperlipidemia, unspecified; G40.909 Epilepsy, unspecified, not intractable, without status epilepticus; G47.30 Sleep apnea, unspecified; I25.2 Old myocardial infarction; Z86.73 Personal history of transient ischemic attack (TIA), and cerebral infarction without residual deficits; Z79.02 Long term (current) use of antithrombotics/antiplatelets; Z91.14 Patient's other noncompliance with medication regimen; Z91.81 History of falling; Z95.0 Presence of cardiac pacemaker
CPT/HCPCS: 36415; 71046; 80048; 80053; 80184; 80185; 81003; 82040; 82607; 82746; 83880; 84443; 84484; 85025; 87040; 93005; 96374; 96375; G0378; J0456; J0696; J7060; J3420; J7030; J7050; Q0177